=== PATIENT | female | born 1950 | race Caucasian/White ===

== ENCOUNTER 2018-02-23 13:07 | Outpatient (CLI) | payer MEDICARE | END 2018-02-23 13:08 | disposition critical access hospital (66) | LOC: EMS 13:07 | PROVIDERS: ATTEND Surgery | DX: R55 Syncope and collapse (principal) | CPT/HCPCS: A0425; A0427 ==

== ENCOUNTER 2018-02-23 13:44 | Emergency (ER) | payer MEDICARE ==
[2018-02-23 13:51] VITALS: BP 118/78
[2018-02-23] MEDS ORDERED: SODIUM CHLORIDE 0.9% 1,000 ML IV ONE (13:55)
--- NOTE | 2018-02-23 13:56 | ED Physician Documentation ---
PD HPI SYNCOPE - Stated complaint Stated Complaint: NEAR SYNCOPE - History obtained from History obtained from: Patient, EMS - History of Present Illness Witnessed: Witnessed Timing - onset: Today Duration: Minutes Preceding symptoms: Light headed (EMS found the patient to have initial BP of 80 systolic. Improved with fluids enroute.) Contributing factors: Recent med change (increased blood pressure meds a week ago, Losartan from 50 to 75 mg daily.), Decreased PO intake (had not eaten this morning), Other (had donated blood and then went to grocery store and was feeling lightheaded in the store. Had also seen eye doctor prior to blood donation with eye dilatation for exam. Pupils still some dilated. She says BP when donating blood was 122 systolic.) Injury occurred: No: Head injury, Neck injury Similar symptoms before: Has not had sx before Recently seen: Clinic (about a week ago, had BP med increased with baseline BP 130-140 systolic with up to 160 at times, per patient.) Review of Systems Constitutional: denies: Fever, Chills Nose: denies: Rhinorrhea / runny nose, Congestion Throat: denies: Sore throat Cardiac: denies: Chest pain / pressure, Palpitations Respiratory: denies: Dyspnea, Cough, Wheezing GI: denies: Abdominal Pain, Nausea, Vomiting, Diarrhea Skin: denies: Rash, Lesions Musculoskeletal: denies: Neck pain, Back pain Neurologic: denies: Confused, Altered mental status, Headache, Head injury Endocrine: denies: Weight loss PD PAST MEDICAL HISTORY - Past Medical History Past Medical History: Yes Cardiovascular: Hypertension - Present Medications Home Medications: Ambulatory Orders Medication Instructions Recorded Confirmed Levothyroxine [Synthroid] 02/23/18 Losartan/Hydrochlorothiazide 02/23/18 [Losartan-Hctz 100-12.5 mg Tab] - Allergies Allergies/Adverse Reactions: Allergies Allergy/AdvReac Type Severity Reaction Status Date / Time risedronate sodium AdvReac Hives Verified 02/23/18 13:54 [From [employer]] - Social History Does the pt smoke?: No Smoking Status: Never smoker PD ED PE NORMAL - Vitals Vital signs reviewed: Yes - General General: Alert and oriented X 3, No acute distress, Well developed/nourished - HEENT HEENT: Moist mucous membranes, Pharynx benign - Neck Neck: Supple, no meningeal sign, No adenopathy - Cardiac Cardiac: RRR, No murmur - Respiratory Respiratory: Clear bilaterally - Abdomen Abdomen: Soft, Non tender - Back Back: No CVA TTP - Derm Derm: Normal color, Warm and dry - Extremities Extremities: No deformity, No tenderness to palpate, Normal ROM s pain, No edema , No calf tenderness / cord - Neuro Neuro: Alert and oriented X 3, No motor deficit, Normal speech Results - Vitals Vitals: Vital Signs - 24 hr 02/23/18 13:48 Temperature 36.1 C L Heart Rate 84 Respiratory 16 Rate Blood Pressure 118/78 O2 Saturation 98 Oxygen O2 Source Room air - Tele (time rhythm occurred) 13:48 Telemetry / rhythm strip: Rate (80), NSR - Labs Labs: Laboratory Tests 02/23/18 02/23/18 14:06 14:06 WBC 5.4 RBC 4.09 L Hgb 13.3 Hct 38.4 MCV 93.8 MCH 32.6 H MCHC 34.7 RDW 13.8 Plt Count 293 MPV 8.0 Neut # 3.6 Lymph # 1.3 L Whitman # 0.3 Eos # 0.2 Baso # 0.1 Absolute Nucleated RBC 0.00 Nucleated RBC % 0.1 Sodium 135 Potassium 3.8 Chloride 103 Carbon Dioxide 24 Anion Gap 8.0 BUN 18 Creatinine 0.8 Estimated GFR (MDRD) 72 L Glucose 132 H Calcium 9.1 Total Bilirubin 0.7 AST 26 ALT 19 Alkaline Phosphatase 47 Total Protein 6.9 Albumin 4.4 Globulin 2.5 Albumin/Globulin Ratio 1.8 Lipase 13 L PD MEDICAL DECISION MAKING - ED course Complexity details: reviewed results, re-evaluated patient (feeling okay on arrival and stays feeling well with good vitals. ), considered differential ( seems reasonably explained by recent increase in BP med dose a week ago, less intake today, and donated blood for first time in many years. Then got lightheaded afterward. Resonable enough. ), d/w patient Departure - Departure Disposition: 01 Home, Self Care Clinical Impression: Syncope, near, Transient hypotension Condition: Stable Record reviewed to determine appropriate education?: Yes Instructions: ED Near Syncope Unkn Comments: Drink lots of fluids today. For the next 2-3 days, I would suggest reverting back to the 50 mg of losartan daily and see how you feel. This will give your body time to compensate from the blood donation. Check your blood pressure at home if you are able. Call and talk with your primary care but likely resume the 75 mg dose after a few days if you are feeling okay. Discharge Date/Time: 02/23/18 15:17
[2018-02-23 14:14] LABS: BASOPHILS # (AUTO) 0.1 10^3/uL (0.0-0.1); EOSINOPHILS # (AUTO) 0.2 10^3/uL (0.0-0.7); EOSINOPHILS % (AUTO) 3.6 %; HGB - HEMOGLOBIN 13.3 g/dL (12.0-16.0); LYMPHOCYTES # (AUTO) 1.3 10^3/uL (1.5-3.5); LYMPHOCYTES % (AUTO) 23.3 %; MEAN CORPUSCULAR HEMOGLOBIN 32.6 pg (27.0-31.0); MEAN CORPUSCULAR HGB CONC 34.7 g/dL (32.0-36.0); MEAN CORPUSCULAR VOLUME 93.8 fL (81.0-99.0); MONOCYTES # (AUTO) 0.3 10^3/uL (0.0-1.0); MONOCYTES % (AUTO) 5.7 %; NEUTROPHILS # (AUTO) 3.6 10^3/uL (1.5-6.6); NEUTROPHILS % (AUTO) 66.4 %; PLT - PLATELET COUNT 293 10^3/uL (130-450); RED BLOOD COUNT 4.09 10^6/uL (4.20-5.40); RED CELL DISTRIBUTION WIDTH 13.8 % (12.0-15.0); WHITE BLOOD COUNT 5.4 x10^3/uL (4.8-10.8)
[2018-02-23 14:28] LABS: ALBUMIN 4.4 g/dL (3.2-5.5); ALBUMIN/GLOBULIN RATIO 1.8 (1.0-2.2); BILIRUBIN,TOTAL 0.7 mg/dL (0.2-1.0); CALCIUM 9.1 mg/dL (8.5-10.3); CREATININE 0.8 mg/dL (0.4-1.0); TOTAL PROTEIN 6.9 g/dL (6.7-8.2)
== END 2018-02-23 15:17 | disposition home or self-care (01) ==
LOC: EDUNIT# → ED 13:44
DX: R55 Syncope and collapse (principal); I95.9 Hypotension, unspecified; I10 Essential (primary) hypertension
CPT/HCPCS: 36415; 80053; 83690; 85025; 96360; 99283; 99284

== ENCOUNTER 2024-02-16 09:04 | Outpatient (CLI) | payer MEDICARE, OTHER ==
--- NOTE | 2024-02-16 11:44 | MRI Report ---
PROCEDURE: Abdomen W/WO INDICATIONS: STEATOSIS OF LIVER CONTRAST: clariscan 13.6ml TECHNIQUE: Coronal ultra fast SE, axial 2D spoiled GE in- and [id number]; axial breath-hold T2 fast SE. Dynam ic axial ultra fast GE during the administration of contrast; post-contrast coronal ultra fast GE or 2D spoiled GE with fat saturation from the hepatic dome to the iliac crests. Optional diffusion weig hted imaging and ADC may be performed. COMPARISON: None FINDINGS: Image quality: Excellent. Lung bases and heart: Unremarkable. Liver: No solid mass. Gallbladder and biliary tree: No biliary ductal dilatation is present. Spleen: No splenomegaly. Pancreas: No pancreatic ductal dilation. Adrenals: No adrenal nodule. Kidneys and ureters: No hydronephrosis. No renal cystic lesion which requires follow up. No solid mas s. Bowel and peritoneum: Moderate hiatal hernia is present. No bowel distension. No pathologic free flui d. Lymph nodes: No central or retroperitoneal adenopathy. Vessels: No infrarenal aortic aneurysm. Bones: No aggressive osseous abnormality. Other: No significant ventral hernia. IMPRESSION: 1. No acute process. 2. Hiatal hernia. Reviewed by: Christopher Tan MD on 02/16/2024 11:42 AM PDT Approved by: Christopher Tan MD on 02/16/2024 11:42 AM PDT Station ID: [id number]
[2024-02-16] MEDS: GADOTERATE MEGLUMINE 7.5 MMOL/15 ML VIAL IVP ONE (18:09)
== END 2024-02-16 09:05 | disposition home or self-care (01) ==
LOC: LAB 09:04
PROVIDERS: ATTEND Internal Medicine
DX: K76.0 Fatty (change of) liver, not elsewhere classified (principal); E83.110 Hereditary hemochromatosis; K44.9 Diaphragmatic hernia without obstruction or gangrene
CPT/HCPCS: 36415; 80053; 82728; 83036; 83540; 84466; 85025

== ENCOUNTER 2024-02-16 09:11 | Outpatient (CLI) | payer MEDICARE, OTHER ==
[2024-02-16 09:35] LABS: BASOPHILS # (AUTO) 0.1 10^3/uL (0.0-0.1); BASOPHILS % (AUTO) 1.3 %; EOSINOPHILS # (AUTO) 0.3 10^3/uL (0.0-0.7); EOSINOPHILS % (AUTO) 6.1 %; HCT - HEMATOCRIT 45.2 % (37.0-47.0); HGB - HEMOGLOBIN 14.9 g/dL (12.0-16.0); LYMPHOCYTES # (AUTO) 1.5 10^3/uL (1.5-3.5); LYMPHOCYTES % (AUTO) 31.6 %; MEAN CORPUSCULAR HEMOGLOBIN 31.4 pg (27.0-31.0); MEAN CORPUSCULAR VOLUME 95.4 fL (81.0-99.0); MEAN PLATELET VOLUME 9.5 fL (7.9-10.8); MONOCYTES # (AUTO) 0.5 10^3/uL (0.0-1.0); MONOCYTES % (AUTO) 9.4 %; NEUTROPHILS # (AUTO) 2.5 10^3/uL (1.5-6.6); NEUTROPHILS % (AUTO) 51.4 %; PLT - PLATELET COUNT 293 10^3/uL (130-450); RED BLOOD COUNT 4.74 10^6/uL (4.20-5.40); RED CELL DISTRIBUTION WIDTH 13.5 % (12.0-15.0); WHITE BLOOD COUNT 4.8 x10^3/uL (4.8-10.8)
[2024-02-16 09:59] LABS: ALBUMIN 4.7 g/dL (3.2-5.5); ALBUMIN/GLOBULIN RATIO 1.6 (1.0-2.2); BILIRUBIN,TOTAL 0.4 mg/dL (0.2-1.0); CALCIUM 10.4 mg/dL (8.5-10.3); CREATININE 0.8 mg/dL (0.6-1.3); POTASSIUM 5.1 mmol/L (3.5-4.5); TOTAL PROTEIN 7.6 g/dL (6.4-8.9)
[2024-02-16 10:08] LABS: ESTIMATED AVERAGE GLUCOSE 108 mg/dL (70-100); HEMOGLOBIN A1c% 5.4 % (4.27-6.07)
[2024-02-16 11:07] LABS: FERRITIN 30.3 ng/mL (11.0-306.8)
== END 2024-02-16 09:12 | disposition home or self-care (01) ==
LOC: LAB 09:11
PROVIDERS: ATTEND Internal Medicine
DX: E83.110 Hereditary hemochromatosis (principal); K76.0 Fatty (change of) liver, not elsewhere classified
CPT/HCPCS: 36415; 80053; 82728; 83036; 83540; 84466; 85025

== ENCOUNTER 2024-03-31 07:52 | Outpatient (CLI) | payer MEDICARE, OTHER | END 2024-03-31 07:53 | disposition home or self-care (01) | LOC: DI 07:52 | PROVIDERS: ATTEND Internal Medicine | DX: I34.0 Nonrheumatic mitral (valve) insufficiency (principal); R01.1 Cardiac murmur, unspecified | CPT/HCPCS: 93307 ==